=== PATIENT | female | born 1950 | race Caucasian/White ===

== ENCOUNTER → 2016-10-10 | Outpatient (CLI) | payer MEDICARE ==
[~2016-10-10] MED LIST: AMITRIPTYLINE H50 MG PO; ASA325 MG PO; ASCORBIC ACID250 MG PO; DULCOLAX-DPS5 MG PO; EVOXAC30 MG PO; FEOSOL-DPS325 MG PO; GLUCOPHAGE-DPS500 MG PO; GLUCOPHAGE1000 MG PO; HUMALOG, N100 UNITS/ SQ; HUMALOG100 UNIT/3 SQ; HYZAAR 50-12.51 TAB PO; LEVEMIR100 UNIT/1 SQ; LOPID DPS600 MG PO; LOPRESSOR DPS50 MG PO; LYRICA100 MG PO; LYRICA150 MG PO; PAMELOR DPS25 MG PO; PAXIL CR25 MG PO; PAXIL10 MG PO; PRILOSEC DPS20 MG PO; REGLAN DPS5 MG PO; SENOKOT S1 TAB PO; TOPROL XL DPS50 MG PO; TYLENOL DPS325 MG PO; ULTRAM DPS50 MG PO; VITAMIN D31000 UNI1 PO; ZANTAC DPS150 MG PO
== END | disposition home or self-care (01) ==
DX: R10.31 Right lower quadrant pain (principal); R10.11 Right upper quadrant pain; Z98.890 Other specified postprocedural states

== ENCOUNTER → 2017-03-17 | Day surgery (SDC) | payer MEDICARE ==
[~2017-03-17] VITALS: Ht 154.9 cm; Wt 76.1 kg
== END | disposition home or self-care (01) ==
LOC: SSS 03-07 13:34
DX: M54.2 Cervicalgia (principal); R29.898 Other symptoms and signs involving the musculoskeletal system; Z53.9 Procedure and treatment not carried out, unspecified reason; Z88.0 Allergy status to penicillin; Z88.1 Allergy status to other antibiotic agents; Z88.5 Allergy status to narcotic agent